=== PATIENT | female | born 1985 | race African-American/Black ===

== ENCOUNTER → 2017-10-22 | Outpatient (REF) | payer OTHER | LOC: M SFHCLERA 09:48 | DX: R10.9 Unspecified abdominal pain (principal) | CPT/HCPCS: 87086 ==

== ENCOUNTER 2018-02-23 21:13 | Emergency (ER) | payer OTHER ==
[2018-02-23] MEDS: NS 1,000 ML IV (22:06)
[2018-02-23] MEDS: METOCLOPRAMIDE INJ 10MG/2ML VIAL (J2765) IV (22:06)
[2018-02-23] MEDS: KETOROLAC 30 MG/ML VIAL (J1885) IV (22:07)
[2018-02-23 22:32] LABS: BASO % 0.5 % (0.0-1.0); EOS # 0.1 10^3/uL (0.0-0.50); EOS % 1.6 % (0.0-3.0); HEMATOCRIT 35.9 % (36.0-47.0); HEMOGLOBIN 11.8 g/dl (12.0-15.5); IMMATURE GRANULOCYTE % 0.3 % (0-3.0); LYMPH # 3.2 10^3/uL (1.5-4.5); LYMPH % 43.4 % (24.0-44.0); MEAN CORPUSCULAR HEMOGLOBIN 28.4 pg (27.0-33.0); MEAN CORPUSCULAR HGB CONC 32.9 g/dl (32.0-36.5); MEAN CORPUSCULAR VOLUME 86.3 fl (80.0-96.0); MONO # 0.7 10^3/uL (0.0-0.8); MONO % 9.9 % (0.0-5.0); NEUTROPHILS # 3.3 10^3/uL (1.8-7.7); NEUTROPHILS % 44.3 % (36.0-66.0); PLATELET COUNT, AUTOMATED 210 10^3/uL (150-450); RED BLOOD COUNT 4.16 10^6/uL (4.00-5.40); WHITE BLOOD COUNT 7.4 10^3/uL (4.0-10.0)
[2018-02-23 22:44] LABS: INR 0.95; PROTHROMBIN TIME 12.8 SECONDS (12.1-14.4)
[2018-02-23 22:45] LABS: PARTIAL THROMBOPLASTIN TIME 27.3 SECONDS (25.4-37.6)
[2018-02-23 23:11] LABS: LACTIC ACID SEPSIS PROTOCOL 0.7 MMOL/L (0.4-2.0)
[2018-02-23 23:11] LABS: ANION GAP 8 MEQ/L (8-16); BLOOD UREA NITROGEN 6 MG/DL (7-18); CALCIUM LEVEL 8.4 MG/DL (8.5-10.1); CARBON DIOXIDE LEVEL 23 MEQ/L (21-32); CHLORIDE LEVEL 111 MEQ/L (98-107); CREATININE FOR GFR 0.97 MG/DL (0.55-1.30); GLOMERULAR FILTRATION RATE > 60.0 (>60); GLUCOSE, FASTING 92 MG/DL (70-100); SODIUM LEVEL 142 MEQ/L (136-145); THYROID STIMULATING HORMONE 0.809 uIU/ML (0.358-3.740)
[2018-02-24 00:36] LABS: KETONE, URINE AUTO RFX NEGATIVE (NEGATIVE); LEUKOCYTE ESTERASE UR AUTO RFX NEGATIVE (NEGATIVE); MUCUS, URINE RFX SMALL (NEGATIVE); NITRITE, URINE AUTO RFX NEGATIVE (NEGATIVE); RBC, URINE AUTO RFX 2 /HPF (0-3); SPECIFIC GRAVITY UR AUTO RFX 1.013 (1.002-1.035); SQUAM EPITHELIAL CELL UR AURFX 1 /HPF (0-6); WBC, URINE AUTO RFX 0 /HPF (0-3)
== END 2018-02-24 00:47 | disposition home or self-care (01) ==
LOC: M ED 02-24 00:47
DX: E86.0 Dehydration (principal); D64.9 Anemia, unspecified
CPT/HCPCS: J1885

== ENCOUNTER → 2018-05-28 | Outpatient (CLI) | payer OTHER ==
[2018-05-28 13:50] LABS: BASO % 0.9 % (0.0-1.0); EOS # 0.1 10^3/uL (0.0-0.50); EOS % 1.8 % (0.0-3.0); HEMATOCRIT 37.2 % (36.0-47.0); HEMOGLOBIN 12.2 g/dl (12.0-15.5); LYMPH # 2.1 10^3/uL (1.5-4.5); LYMPH % 47.3 % (24.0-44.0); MEAN CORPUSCULAR HEMOGLOBIN 28.4 pg (27.0-33.0); MEAN CORPUSCULAR HGB CONC 32.8 g/dl (32.0-36.5); MEAN CORPUSCULAR VOLUME 86.7 fl (80.0-96.0); MONO # 0.6 10^3/uL (0.0-0.8); MONO % 12.5 % (0.0-5.0); NEUTROPHILS # 1.7 10^3/uL (1.8-7.7); NEUTROPHILS % 37.3 % (36.0-66.0); PLATELET COUNT, AUTOMATED 248 10^3/uL (150-450); RED BLOOD COUNT 4.29 10^6/uL (4.00-5.40); WHITE BLOOD COUNT 4.5 10^3/uL (4.0-10.0)
[2018-05-28 14:03] LABS: ALT/SGPT 26 U/L (12-78); BILIRUBIN,TOTAL 0.3 MG/DL (0.2-1.0); BLOOD UREA NITROGEN 12 MG/DL (7-18); CALCIUM LEVEL 9.2 MG/DL (8.5-10.1); CARBON DIOXIDE LEVEL 26 MEQ/L (21-32); CHLORIDE LEVEL 108 MEQ/L (98-107); CREATININE FOR GFR 1.03 MG/DL (0.55-1.30); FERRITIN 12 NG/ML (8-252); FOLATE 10.7 NG/ML; FREE T4 0.91 NG/DL (0.76-1.46); GLOMERULAR FILTRATION RATE > 60.0 (>60); GLUCOSE, FASTING 82 MG/DL (70-100); IRON (FE) 72 UG/DL (50-170); PERCENT SATURATION 20.3 % (13.2-45.0); POTASSIUM SERUM 4.6 MEQ/L (3.5-5.1); SODIUM LEVEL 141 MEQ/L (136-145); THYROID STIMULATING HORMONE 0.383 uIU/ML (0.358-3.740); TOTAL IRON BINDING CAPACITY 355 UG/DL (250-450); TOTAL PROTEIN 7.3 GM/DL (6.4-8.2); VITAMIN B12 LEVEL 828 PG/ML
[2018-05-28 14:27] LABS: SICKLE CELL SCREEN NEGATIVE (NEGATIVE)
== END ==
LOC: M SMT 11:00
PROVIDERS: ATTEND Physician Assistant
DX: D64.9 Anemia, unspecified (principal)

== ENCOUNTER 2018-06-10 17:29 | Emergency (ER) | payer OTHER ==
[~2018-06-10] VITALS: Ht 154.9 cm; Wt 68.6 kg
[2018-06-10] MEDS ORDERED: PHEN-239 PO (17:41)
[2018-06-10] MEDS: METOCLOPRAMIDE INJ 10MG/2ML VIAL (J2765) IV ONE ×2 (18:30→18:42)
[2018-06-10] MEDS ORDERED: KETOROLAC 30 MG/ML VIAL (J1885) IV ONE (18:30)
[2018-06-10] MEDS ORDERED: diphenhydrAMINE INJ 50MG/ML VIAL (J1200) IV ONE (18:30)
[2018-06-10] MEDS ORDERED: CYCLOBENZAPRINE 10 MG TAB PO ONE (18:30)
[2018-06-10 18:39] LABS: BASO % 0.8 % (0.0-1.0); EOS % 0.8 % (0.0-3.0); HEMATOCRIT 38.8 % (36.0-47.0); HEMOGLOBIN 12.9 g/dl (12.0-15.5); LYMPH # 1.9 10^3/uL (1.5-4.5); LYMPH % 38.2 % (24.0-44.0); MEAN CORPUSCULAR HEMOGLOBIN 28.7 pg (27.0-33.0); MEAN CORPUSCULAR HGB CONC 33.2 g/dl (32.0-36.5); MEAN CORPUSCULAR VOLUME 86.2 fl (80.0-96.0); MONO # 0.7 10^3/uL (0.0-0.8); MONO % 13.6 % (0.0-5.0); NEUTROPHILS # 2.3 10^3/uL (1.8-7.7); NEUTROPHILS % 46.4 % (36.0-66.0); PLATELET COUNT, AUTOMATED 220 10^3/uL (150-450); WHITE BLOOD COUNT 4.9 10^3/uL (4.0-10.0)
--- NOTE | 2018-06-10 18:48 | REP ---
Clinical: Syncope . Comparison: 02/23/2018 . Findings: The ventricles, sulci, and cisterns are normal in position and appearance. Craig-white differentiation is maintained. No acute intracranial hemorrhage, mass/mass effect, pathology or trauma/injury. No evidence for acute infarction. No extra-axial fluid collection. Calvarium is intact. Paranasal sinuses and mastoid air cells are clear. Impression: Normal noncontrast head CT. No evidence for acute intracranial pathology or trauma/injury. Electronically Signed by Chino Shanks MD 06/10/2018 06:39 P
--- NOTE | 2018-06-10 18:50 | REP ---
Clinical: Syncope. Comparison: 02/23/2018 . Technique: Axial noncontrast images from the skull base to the thoracic inlet with coronal and sagittal re-formations Findings: Straightening of normal lordosis again noted. No acute fracture / compression injury or subluxation. Early moderate degenerative disc osteophyte complex at C5-6 and C6-7 again noted and unchanged. Spinal canal is patent. Posterior elements and spinous processes are intact. Paravertebral soft tissues normal. Impression: Moderate degenerative spondylosis at C5-6 and C6-7. No evidence for acute pathology or trauma/injury. Electronically Signed by Chino Shanks MD 06/10/2018 06:41 P
[2018-06-10 18:54] LABS: ALT/SGPT 23 U/L (12-78); BILIRUBIN,DIRECT < 0.1 MG/DL (0.0-0.2); BILIRUBIN,TOTAL 0.2 MG/DL (0.2-1.0); BLOOD UREA NITROGEN 10 MG/DL (7-18); CALCIUM LEVEL 9.2 MG/DL (8.5-10.1); CARBON DIOXIDE LEVEL 26 MEQ/L (21-32); CHLORIDE LEVEL 107 MEQ/L (98-107); CREATININE FOR GFR 1.24 MG/DL (0.55-1.30); GLOMERULAR FILTRATION RATE > 60.0 (>60); GLUCOSE, FASTING 101 MG/DL (70-100); MAGNESIUM LEVEL 2.1 MG/DL (1.8-2.4); SODIUM LEVEL 139 MEQ/L (136-145); TOTAL PROTEIN 7.4 GM/DL (6.4-8.2)
[2018-06-10] MEDS ORDERED: NORT25CA2 PO (21:12)
[2018-06-10 21:36] VITALS: BP 118/75
--- NOTE | 2018-06-11 10:22 | ECGEPIP ---
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
== END 2018-06-10 21:39 | disposition home or self-care (01) ==
LOC: M ED 17:29 → EDBD 17:29 → M ED 21:39
DX: M54.81 Occipital neuralgia (principal); G43.909 Migraine, unspecified, not intractable, without status migrainosus; Z79.899 Other long term (current) drug therapy
CPT/HCPCS: 36415; 70450; 72125; 80048; 80076; 83735; 84439; 84443; 85025; 93005; 96374; 96375; 99284; J1200; J1885

== ENCOUNTER 2018-06-24 22:00 | Emergency (ER) | payer OTHER ==
[~2018-06-24 22:00] MED LIST: NORT25CA2 PO; PHEN-239 PO
[2018-06-24] MEDS ORDERED: PROP60TA14 PO (22:10)
[2018-06-24 23:03] LABS: ABG BASE EXCESS -1.1 (-2.0-2.0); ABG HCO3 21.9 MEQ/L (22.0-26.0); ABG O2 SATURATION 98.8 % (95.0-99.0); ABG PARTIAL PRESSURE CO2 31.3 mmHg (35.0-45.0); ABG PARTIAL PRESSURE O2 120.4 mmHg (75.0-100.0); ABG STANDARD HCO3 23.6 MEQ/L (22.0-26.0); ABG TOTAL CO2 22.8 MEQ/L (22.0-29.0); ABG pH (ARTERIAL) 7.462 UNITS (7.350-7.450)
[2018-06-24 23:45] VITALS: BP 129/83
--- NOTE | 2018-06-25 02:32 | REP ---
Clinical: Dyspnea . Comparison: None . Technique: PA and lateral. Findings: The mediastinum and cardiac silhouette are normal. The lung morgan are clear and without acute consolidation, effusion, or pneumothorax. The skeletal structures are intact and normal. Impression: 1. No acute cardiopulmonary process. Electronically Signed by Chino Shanks MD 06/25/2018 02:24 A
--- NOTE | 2018-06-25 15:33 | ECGEPIP ---
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
== END 2018-06-25 00:27 | disposition home or self-care (01) ==
LOC: M ED 22:00 → EDBD 22:00 → M ED 06-25 00:27
DX: I10 Essential (primary) hypertension (principal); F41.9 Anxiety disorder, unspecified

== ENCOUNTER → 2018-07-10 | Outpatient (CLI) | payer OTHER ==
[~2018-07-10] MED LIST changes: +KETO10TAB PO; +PROP60TA14 PO
--- NOTE | 2018-07-10 20:17 | REP ---
Chest two views HISTORY: Left breast pain Comparison: None The lungs are clear. The heart is normal in size. The pulmonary vasculature is normal in appearance. The bony structure is intact. IMPRESSION: No acute disease. Electronically Signed by John Crowder MD 07/10/2018 08:07 P
== END ==
LOC: M LRY 19:42
PROVIDERS: ATTEND Nurse Practitioner Family
DX: N64.4 Mastodynia (principal)
CPT/HCPCS: 71046; 93005; 96372; G0463; J1885

== ENCOUNTER 2018-07-11 20:11 | Emergency (ER) | payer OTHER ==
[~2018-07-11] VITALS: Ht 154.9 cm; Wt 65.9 kg
[~2018-07-11 20:11] MED LIST changes: -KETO10TAB PO
[2018-07-11 20:51] LABS: BASO % 0.5 % (0.0-1.0); EOS # 0.1 10^3/uL (0.0-0.50); EOS % 1.4 % (0.0-3.0); HEMATOCRIT 35.9 % (36.0-47.0); LYMPH # 2.7 10^3/uL (1.5-4.5); LYMPH % 41.9 % (24.0-44.0); MEAN CORPUSCULAR HEMOGLOBIN 28.8 pg (27.0-33.0); MEAN CORPUSCULAR HGB CONC 33.4 g/dl (32.0-36.5); MEAN CORPUSCULAR VOLUME 86.1 fl (80.0-96.0); MONO # 0.8 10^3/uL (0.0-0.8); MONO % 12.5 % (0.0-5.0); NEUTROPHILS # 2.8 10^3/uL (1.8-7.7); NEUTROPHILS % 43.5 % (36.0-66.0); PLATELET COUNT, AUTOMATED 195 10^3/uL (150-450); RED BLOOD COUNT 4.17 10^6/uL (4.00-5.40); WHITE BLOOD COUNT 6.3 10^3/uL (4.0-10.0)
--- NOTE | 2018-07-11 20:56 | REP ---
Chest one-view HISTORY: Chest pain Comparison: 07/10/2018 The lungs are clear. The heart is normal in size. The pulmonary vasculature is normal in appearance. Impression: No acute disease. Electronically Signed by John Crowder MD 07/11/2018 08:47 P
[2018-07-11] MEDS ORDERED: KETOROLAC 30 MG/ML VIAL (J1885) IV ONE (21:00)
[2018-07-11 21:12] LABS: BLOOD UREA NITROGEN 8 MG/DL (7-18); CALCIUM LEVEL 8.5 MG/DL (8.5-10.1); CARBON DIOXIDE LEVEL 24 MEQ/L (21-32); CHLORIDE LEVEL 110 MEQ/L (98-107); CK-MB VALUE MASS < 1.0 NG/ML (<3.6); CPK CREATINE PHOSPHOKINASE 148 U/L (26-192); CREATININE FOR GFR 1.03 MG/DL (0.55-1.30); GLOMERULAR FILTRATION RATE > 60.0 (>60); GLUCOSE, FASTING 86 MG/DL (70-100); MB/CK RELATIVE INDEX 0.68 (< OR =4); POTASSIUM SERUM 3.9 MEQ/L (3.5-5.1); SODIUM LEVEL 141 MEQ/L (136-145); TROPONIN I < 0.02 NG/ML (< 0.10)
[2018-07-11 21:26] LABS: HCG, SERUM QUALITATIVE NEGATIVE (NEGATIVE)
[2018-07-11] MEDS ORDERED: ISOVUE-370 76% 100ML VIAL (Q9967) As Ordered ONE (21:35)
[2018-07-11] MEDS ORDERED: NS 500 ML IV ONE (21:45)
--- NOTE | 2018-07-11 22:32 | REPVR ---
EXAM: CT Angiography Chest With Contrast EXAM DATE/TIME: 07/11/2018 9:40 PM CLINICAL HISTORY: 32 years old, female; Signs and symptoms; Shortness of breath; Patient HX: R/O pe; Additional info: Cp TECHNIQUE: Imaging protocol: Axial computed tomographic angiography images of the chest with intravenous contrast using CT angiography protocol. Coronal and sagittal reformatted images were created and reviewed. 3D rendering: MIP reconstructed images were created and reviewed. Radiation optimization: All CT scans at this facility use at least one of these dose optimization techniques: automated exposure control; mA and/or kV adjustment per patient size (includes targeted exams where dose is matched to clinical indication); or iterative reconstruction. Contrast material: ISOVUE 370; Contrast volume: 75 ml; Contrast route: IV; COMPARISON: CR PORTABLE CHEST X-RAY 07/11/2018 8:30 PM FINDINGS: Pulmonary arteries: The main pulmonary artery measures 24 mm. No pulmonary embolism is identified. Aorta: The ascending thoracic aorta measures 24 mm. Lungs: Normal. No consolidation. No masses. Pleural space: Normal. No pneumothorax. No pleural effusion. Heart: Normal. No cardiomegaly. No pericardial effusion. Mediastinum: There is soft tissue conforming to the anterior mediastinum consistent with residual thymic tissue. Lymph nodes: Unremarkable. No enlarged lymph nodes. Bones/joints: Unremarkable. No acute fracture. Soft tissues: Unremarkable. IMPRESSION: Negative CTA chest. No pulmonary embolism is identified. Electronically signed by: Chase Fernando On 07/11/2018 22:32:29 PM
[2018-07-11 22:35] VITALS: BP 124/76
[2018-07-11] MEDS ORDERED: KETO10TAB PO (22:37)
--- NOTE | 2018-07-12 07:46 | ECGEPIP ---
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
== END 2018-07-11 22:59 | disposition home or self-care (01) ==
LOC: M ED 20:11
DX: R07.1 Chest pain on breathing (principal); F41.9 Anxiety disorder, unspecified; G89.29 Other chronic pain; M54.9 Dorsalgia, unspecified; Z79.899 Other long term (current) drug therapy
CPT/HCPCS: 71045; 71275; 80048; 82550; 82553; 84484; 84703; 85025; 93005; 93041; 94760; 96374; 99284; J1885; Q9967

== ENCOUNTER → 2018-08-25 | Outpatient (CLI) | payer OTHER ==
[~2018-08-25] MED LIST changes: +KETO10TAB PO
[2018-08-25 18:04] LABS: FREE T4 0.81 NG/DL (0.76-1.46); THYROID STIMULATING HORMONE 0.457 uIU/ML (0.358-3.740)
[2018-08-25 18:05] LABS: TOTAL 25(OH) VITAMIN D 25.6 NG/ML (30.0-100.0)
== END ==
LOC: M SMT 15:52
PROVIDERS: ATTEND Family Medicine
DX: N92.6 Irregular menstruation, unspecified (principal); Z13.29 Encounter for screening for other suspected endocrine disorder

== ENCOUNTER → 2018-12-06 | Outpatient (REF) | payer OTHER ==
[2018-12-06 20:53] LABS: CHLAMYDIA DNA AMPLIFICATION NEGATIVE (NEGATIVE); GC DNA AMPLIFICATION NEGATIVE (NEGATIVE)
== END ==
LOC: M SFHCLERA 13:55
PROVIDERS: ATTEND Nurse Practitioner Family
DX: R30.0 Dysuria (principal)
CPT/HCPCS: 81002; 81025; 87086; 87661; G0463

== ENCOUNTER → 2018-12-30 | Outpatient (CLI) | payer OTHER ==
[~2018-12-30] MED LIST changes: +PROHANCE 279.3MG/ML 15ML VIAL (A9576) As Ordered ONE; +PROP20TA72
--- NOTE | 2018-12-30 18:39 | REP ---
Bilateral breast MRI study without and with IV gadolinium: History: Dense breast parenchyma on mammography. Mastodynia. Technique: 3 Sabrina MRI imaging was performed with a dedicated breast coil. Axial, coronal, and sagittal T1 and T2-weighted scans were obtained with and without fat saturation in the usual fashion. The study includes dynamically acquired post gadolinium enhanced imaging subtraction imaging. Maximal intensity projection and multiplanar re-formation imaging is included as well. The study was interpreted with the aid of [employer], an FDA approved computer-aided detection (CAD) software program, on a dedicated breast MRI work station. The gadolinium enhancement dose is 14 ml of intravenous ProHance. Findings: There is a mild to moderate fibroglandular tissue pattern noted bilaterally and in symmetrical pattern. There is mild background parenchymal enhancement. There is no evidence of axillary lymphadenopathy or significant breast cystic change. High-resolution pre and postcontrast T1 and T2-weighted scans show no suspicious morphologic abnormality in either breast. There is a 6 mm focus of T2 hyperintensity which shows enhancement in the central right breast. This is consistent with fibroadenoma. No suspicious focus of enhancement and/or washout is seen in either breast to suggest malignancy. Impression: BIRADS category II benign findings. Electronically Signed by Wilton Baltazar MD 12/31/2018 06:18 P
== END ==
LOC: M RAD 12:27
PROVIDERS: ATTEND Physician Assistant
DX: N64.4 Mastodynia (principal); N64.89 Other specified disorders of breast
CPT/HCPCS: A9576; C8908

== ENCOUNTER 2018-12-31 21:37 | Emergency (ER) | payer OTHER ==
[~2018-12-31] VITALS: Ht 154.9 cm; Wt 70.9 kg
[~2018-12-31 21:37] MED LIST changes: -PROHANCE 279.3MG/ML 15ML VIAL (A9576) As Ordered ONE; -PROP20TA72
[2019-01-01 00:15] LABS: BASO % 0.5 % (0.0-1.0); EOS # 0.2 10^3/uL (0.0-0.5); EOS % 2.1 % (0.0-3.0); HEMATOCRIT 37.6 % (36.0-47.0); HEMOGLOBIN 12.5 g/dl (12.0-15.5); LYMPH % 39.4 % (24.0-44.0); MEAN CORPUSCULAR HEMOGLOBIN 29.3 pg (27.0-33.0); MEAN CORPUSCULAR HGB CONC 33.2 g/dl (32.0-36.5); MEAN CORPUSCULAR VOLUME 88.1 fl (80.0-96.0); MONO # 0.7 10^3/uL (0.0-0.8); MONO % 8.6 % (0.0-5.0); NEUTROPHILS # 3.7 10^3/uL (1.5-8.5); NEUTROPHILS % 49.1 % (36.0-66.0); PLATELET COUNT, AUTOMATED 233 10^3/uL (150-450); RED BLOOD COUNT 4.27 10^6/uL (4.00-5.40); WHITE BLOOD COUNT 7.6 10^3/uL (4.0-10.0)
[2019-01-01 00:30] LABS: BLOOD UREA NITROGEN 13 MG/DL (7-18); CALCIUM LEVEL 9.2 MG/DL (8.5-10.1); CARBON DIOXIDE LEVEL 30 MEQ/L (21-32); CHLORIDE LEVEL 108 MEQ/L (98-107); CK-MB VALUE MASS < 1.0 NG/ML (<3.6); CPK CREATINE PHOSPHOKINASE 308 U/L (26-192); CREATININE FOR GFR 1.07 MG/DL (0.55-1.30); GLOMERULAR FILTRATION RATE > 60.0 (>60); GLUCOSE, FASTING 90 MG/DL (70-100); MB/CK RELATIVE INDEX 0.32 (< OR =4); POTASSIUM SERUM 4.2 MEQ/L (3.5-5.1); SODIUM LEVEL 141 MEQ/L (136-145); TROPONIN I < 0.02 NG/ML (< 0.10)
[2019-01-01] MEDS ORDERED: PROP20TA72 (00:58)
[2019-01-01 01:16] VITALS: BP 151/92
--- NOTE | 2019-01-01 02:52 | REP ---
Clinical: Acute chest pain . Comparison: 07/11/2018 . Findings: The mediastinum and cardiac silhouette are stable and within normal limits for portable technique. The lung morgan are clear without acute consolidation, effusion, or pneumothorax. Skeletal structures are intact. Impression: No acute cardiopulmonary process appreciated. Electronically Signed by Chino Shanks MD 01/01/2019 02:43 A
--- NOTE | 2019-01-01 19:52 | ECGEPIP ---
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
== END 2019-01-01 01:17 | disposition home or self-care (01) ==
LOC: M ED 21:37
DX: R07.89 Other chest pain (principal); R06.02 Shortness of breath; R74.8 Abnormal levels of other serum enzymes; T44.7X5A Adverse effect of beta-adrenoreceptor antagonists, initial encounter; R94.31 Abnormal electrocardiogram [ECG] [EKG]; J45.909 Unspecified asthma, uncomplicated; G43.909 Migraine, unspecified, not intractable, without status migrainosus; Z79.84 Long term (current) use of oral hypoglycemic drugs

== ENCOUNTER → 2019-01-27 | Outpatient (REF) | payer OTHER ==
[~2019-01-27] MED LIST changes: +PROP20TA72
[2019-01-27 17:50] LABS: APPEARANCE, URINE CLEAR (CLEAR); BACTERIA, URINE AUTO NEGATIVE (NEGATIVE); BILIRUBIN, URINE AUTO NEGATIVE (NEGATIVE); BLOOD, URINE BLOOD NEGATIVE (NEGATIVE); COLOR, URINE STRAW (YELLOW); GLUCOSE, URINE (UA) AUTO NEGATIVE (NEGATIVE); KETONE, URINE AUTO NEGATIVE (NEGATIVE); LEUKOCYTE ESTERASE, URINE AUTO NEGATIVE (NEGATIVE); MUCUS, URINE SMALL (NEGATIVE); NITRITE, URINE AUTO NEGATIVE (NEGATIVE); PROTEIN, URINE AUTO NEGATIVE (NEGATIVE); RBC, URINE AUTO 1 /HPF (0-3); SQUAMOUS EPITHELIAL CELL UR AU 0 /HPF (0-6); UROBILINOGEN, URINE AUTO 0.2 mg/dL (0.0-2.0); WBC, URINE AUTO 0 /HPF (0-3)
== END ==
LOC: M LAB REF 17:03
PROVIDERS: ATTEND Physician Assistant
DX: R31.9 Hematuria, unspecified (principal)

== ENCOUNTER 2019-02-04 16:14 | Emergency (ER) | payer OTHER ==
[~2019-02-04] VITALS: Ht 154.9 cm; Wt 70.5 kg
[2019-02-04 17:11] LABS: URINE PREG TEST NEGATIVE (NEGATIVE)
[2019-02-04] MEDS ORDERED: NORCO, ANEXSIA 5/325MG TABLET (HYDROcodone/ACETAMINOPHEN) PO ONE (18:00)
--- NOTE | 2019-02-04 18:23 | REPVR ---
PROCEDURE INFORMATION: Exam: US Pelvis Complete, Transabdominal Exam date and time: 02/04/2019 5:26 PM Age: 33 years old Clinical history: Pelvic pain; Additional info: Right pelvic pain; Cyst vs torsion TECHNIQUE: Imaging protocol: Real-time transabdominal pelvic ultrasound with image documentation. Complete exam. COMPARISON: No relevant prior studies available. FINDINGS: Uterus/cervix: The uterus is anteverted and measures 10.3 x 5.6 x 5.7 cm. The endometrium measures 11 mm. Within the endometrium, there is a circumscribed 12 x 6 mm focus of heterogeneous echotexture which is nonspecific. Question endometrial polyp. There are at least 3 myometrial lesions, most likely leiomyomata, measuring up to 1.5 cm. Right adnexa: The right ovary measures 3.7 x 2.2 x 3.3 cm. Normal vascular flow. There is a dominant 2.2 cm right ovarian follicle or cyst. Left adnexa: The left ovary measures 1 x 2.8 x 3.0 cm. Normal vascular flow. There is a 3.0 centimeter dominant left ovarian follicle or cyst. Free fluid: No free fluid in the cul-de-sac. Bladder: No intrinsic bladder abnormality demonstrated. IMPRESSION: 1. Endometrial lesion. Question polyp. 2. Leiomyomatous uterus. 3. Bilateral ovarian cysts or dominant follicles. 4. No free fluid in the cul-de-sac. Electronically signed by: My Mckinley On 02/04/2019 18:23:32 PM
[2019-02-04] MEDS ORDERED: NORC1TAB7 PO (18:32)
[2019-02-04 18:35] VITALS: BP 125/71
--- NOTE | 2019-02-05 10:39 | ED PDOC ---
Post-Departure Follow-Up dr lyons faxed formal report of pelvic us for fu Kiet Mcneil MD Feb 05, 2019 10:39
== END 2019-02-04 18:46 | disposition home or self-care (01) ==
LOC: M ED 16:14
DX: D25.9 Leiomyoma of uterus, unspecified (principal); N83.291 Other ovarian cyst, right side; N83.292 Other ovarian cyst, left side; N85.8 Other specified noninflammatory disorders of uterus; I10 Essential (primary) hypertension

== ENCOUNTER → 2019-02-09 | Outpatient (REF) | payer OTHER ==
[~2019-02-09] MED LIST changes: +NORC1TAB7 PO
[2019-02-09 14:32] LABS: APPEARANCE, URINE CLEAR (CLEAR); BACTERIA, URINE AUTO NEGATIVE (NEGATIVE); BILIRUBIN, URINE AUTO NEGATIVE (NEGATIVE); BLOOD, URINE BLOOD NEGATIVE (NEGATIVE); COLOR, URINE STRAW (YELLOW); GLUCOSE, URINE (UA) AUTO NEGATIVE (NEGATIVE); KETONE, URINE AUTO NEGATIVE (NEGATIVE); LEUKOCYTE ESTERASE, URINE AUTO NEGATIVE (NEGATIVE); NITRITE, URINE AUTO NEGATIVE (NEGATIVE); PROTEIN, URINE AUTO NEGATIVE (NEGATIVE); RBC, URINE AUTO 0 /HPF (0-3); SPECIFIC GRAVITY URINE AUTO 1.002 (1.002-1.035); SQUAMOUS EPITHELIAL CELL UR AU 0 /HPF (0-6); UROBILINOGEN, URINE AUTO 0.2 mg/dL (0.0-2.0); WBC, URINE AUTO 0 /HPF (0-3)
== END ==
LOC: M SMT 13:10
PROVIDERS: ATTEND Nurse Practitioner Family
DX: R31.0 Gross hematuria (principal)
CPT/HCPCS: 81001; 87086; 88108; G0463

== ENCOUNTER → 2019-02-16 | Outpatient (CLI) | payer OTHER ==
[~2019-02-16] MED LIST changes: +ISOVUE-370 76% 100ML VIAL (Q9967) As Ordered ONE
--- NOTE | 2019-02-17 08:28 | REP ---
Clinical: Gross hematuria. Technique: Axial precontrast, contrast enhanced, and delayed images of the abdomen and pelvis using 100 ml Isovue 370 intravenous contrast material with coronal and sagittal re-formations as well as volume rendered 3-D CT urogram. Findings: Evaluation of the urinary tract system including bilateral kidneys, ureters and bladder are normal in all phases of enhancement. No nephroureterolithiasis, hydroureternephrosis, renal cystic or mass lesion. No bladder lesion. Renal parenchymal enhancement is symmetric and delayed images demonstrate normal collecting system. Liver includes 2.2 cm hemangioma in the lateral left segment. Spleen, pancreas, collapsed gallbladder, and bilateral adrenal glands are normal. The enteric system is unremarkable and a normal appendix is identified. A moderate to significant amount of stool identified in the rectosigmoid. Pelvis demonstrates normal bladder and age-appropriate uterus/adnexa. No ascites. No free air. No significant adenopathy. Abdominal aorta without aneurysm or dissection. Musculoskeletal structures are intact. Impression: 1. Normal urinary tract system. 2. Moderate to significant amount of fecal material in the rectosigmoid likely transient. 3. 2.2 cm hemangioma within the left lobe of liver. Electronically Signed by Chino Shanks MD 02/17/2019 08:19 A
== END ==
LOC: M RAD 16:36
PROVIDERS: ATTEND Nurse Practitioner Family
DX: R31.0 Gross hematuria (principal)
CPT/HCPCS: 74178; Q9967

== ENCOUNTER → 2019-04-05 | Outpatient (REF) | payer OTHER ==
[~2019-04-05] MED LIST changes: -ISOVUE-370 76% 100ML VIAL (Q9967) As Ordered ONE
== END ==
LOC: M LAB REF 17:16
PROVIDERS: ATTEND Physician Assistant
DX: N76.0 Acute vaginitis (principal)

== ENCOUNTER 2019-08-17 18:34 | Emergency (ER) | payer OTHER ==
[~2019-08-17] VITALS: Ht 154.9 cm; Wt 74.0 kg
[2019-08-17] MEDS ORDERED: CETI-24 (18:40)
[2019-08-17] MEDS ORDERED: MONT10TA10 (18:40)
[2019-08-17] MEDS ORDERED: FLUT11IN (18:40)
[2019-08-17] MEDS ORDERED: PROAAER10 (18:40)
--- NOTE | 2019-08-17 19:13 | ECGEPIP ---
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
[2019-08-17 20:03] LABS: BASO % 0.4 % (0.0-1.0); EOS # 0.1 10^3/uL (0.0-0.5); HEMATOCRIT 35.9 % (36.0-47.0); HEMOGLOBIN 11.7 g/dl (12.0-15.5); LYMPH # 2.3 10^3/uL (1.5-5.0); LYMPH % 34.5 % (24.0-44.0); MEAN CORPUSCULAR HEMOGLOBIN 26.2 pg (27.0-33.0); MEAN CORPUSCULAR HGB CONC 32.6 g/dl (32.0-36.5); MEAN CORPUSCULAR VOLUME 80.3 fl (80.0-96.0); MONO # 0.8 10^3/uL (0.0-0.8); MONO % 11.9 % (0.0-5.0); NEUTROPHILS # 3.5 10^3/uL (1.5-8.5); NEUTROPHILS % 51.9 % (36.0-66.0); PLATELET COUNT, AUTOMATED 261 10^3/uL (150-450); RED BLOOD COUNT 4.47 10^6/uL (4.00-5.40); WHITE BLOOD COUNT 6.8 10^3/uL (4.0-10.0)
[2019-08-17 20:14] LABS: INR 1.03; PROTHROMBIN TIME 13.2 SECONDS (11.8-14.0)
[2019-08-17 20:15] LABS: PARTIAL THROMBOPLASTIN TIME 26.9 SECONDS (25.0-38.4)
[2019-08-17 20:17] LABS: D-DIMER QUANT 596.16 ng/ml (<500)
[2019-08-17 20:40] LABS: ALBUMIN 3.8 GM/DL (3.2-5.2); ALT/SGPT 27 U/L (12-78); BILIRUBIN,DIRECT 0.1 MG/DL (0.0-0.2); BILIRUBIN,TOTAL 0.2 MG/DL (0.2-1.0); CK-MB VALUE MASS < 1.0 NG/ML (<3.6); CPK CREATINE PHOSPHOKINASE 804 U/L (26-192); FREE T4 1.11 NG/DL (0.76-1.46); LIPASE 157 U/L (73-393); MB/CK RELATIVE INDEX 0.12 (< OR =4); NT-PRO BNP 36 PG/ML (<125); THYROID STIMULATING HORMONE < 0.005 uIU/ML (0.358-3.740); TOTAL PROTEIN 7.4 GM/DL (6.4-8.2); TROPONIN I < 0.02 NG/ML (< 0.10)
[2019-08-17] MEDS ORDERED: ISOVUE-370 76% 100ML VIAL As Ordered ONE (20:52)
--- NOTE | 2019-08-17 21:30 | REPVR ---
PROCEDURE INFORMATION: Exam: CT Angiography Chest With Contrast Exam date and time: 08/17/2019 9:07 PM Age: 33 years old Clinical indication: Chest pain; Additional info: Chest pain/sob TECHNIQUE: Imaging protocol: Computed tomographic angiography of the chest with intravenous contrast. 3D rendering: MIP and/or 3D reconstructed images were created by the technologist. Radiation optimization: All CT scans at this facility use at least one of these dose optimization techniques: automated exposure control; mA and/or kV adjustment per patient size (includes targeted exams where dose is matched to clinical indication); or iterative reconstruction. Contrast material: ISO 370; Contrast volume: 75 ml; Contrast route: IV; COMPARISON: CT ANGIO CHEST 07/11/2018 9:33 PM FINDINGS: Pulmonary arteries: Normal. No pulmonary emboli. Aorta: Unremarkable. No aortic aneurysm. No aortic dissection. Lungs: Unremarkable. No consolidation. No masses. Pleural space: Unremarkable. No pneumothorax. No pleural effusion. Heart: Unremarkable. No cardiomegaly. No pericardial effusion. Mediastinum: Small amount of residual mediastinal thymic tissue. Lymph nodes: Unremarkable. No enlarged lymph nodes. Bones/joints: Unremarkable. No acute fracture. Soft tissues: Unremarkable. IMPRESSION: No acute findings. Electronically signed by: Gaurav Akins On 08/17/2019 21:30:19 PM
--- NOTE | 2019-08-17 21:43 | REPVR ---
PROCEDURE INFORMATION: Exam: CT Head Without Contrast Exam date and time: 08/17/2019 9:07 PM Age: 33 years old Clinical indication: Pain; Headache TECHNIQUE: Imaging protocol: Computed tomography of the head without contrast. Radiation optimization: All CT scans at this facility use at least one of these dose optimization techniques: automated exposure control; mA and/or kV adjustment per patient size (includes targeted exams where dose is matched to clinical indication); or iterative reconstruction. COMPARISON: CT Head without contrast 06/10/2018 6:21 PM FINDINGS: Brain: The white-oconnor differentiation is preserved demonstrating no acute territorial type infarct. No acute intracranial hemorrhage is visualized. No intracranial mass effect. There is no midline shift. Ventricles: No ventriculomegaly. Bones/joints: The calvarium demonstrates no evidence for a depressed fracture. Sinuses: Visualized sinuses are unremarkable. No fluid levels. Mastoid air cells: No mastoid effusion. Soft tissues: Unremarkable. IMPRESSION: No acute intracranial abnormality. Electronically signed by: Dao Amaro On 08/17/2019 21:42:49 PM
[2019-08-17 22:48] VITALS: BP 138/88
--- NOTE | 2019-08-18 01:36 | REP ---
Clinical: Acute chest pain . Comparison: 12/31/2018 . Technique: PA and lateral. Findings: The mediastinum and cardiac silhouette are normal. The lung morgan are clear and without acute consolidation, effusion, or pneumothorax. The skeletal structures are intact and normal. Impression: 1. No acute cardiopulmonary process. Electronically Signed by Chino Shanks MD 08/18/2019 01:28 A
--- NOTE | 2019-08-18 06:43 | ECGEPIP ---
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
== END 2019-08-17 22:49 | disposition home or self-care (01) ==
LOC: M ED 18:34
DX: R07.9 Chest pain, unspecified (principal); E05.90 Thyrotoxicosis, unspecified without thyrotoxic crisis or storm; I10 Essential (primary) hypertension; J45.909 Unspecified asthma, uncomplicated
CPT/HCPCS: 36415; 70450; 71046; 71275; 80047; 80076; 82550; 82553; 83690; 83880; 84439; 84443; 84484; 84702; 85025; 85379; 85610; 85730; 93005; 99284; Q9967

== ENCOUNTER → 2019-08-20 | Outpatient (CLI) | payer OTHER ==
[~2019-08-20] MED LIST changes: +ALL10TAB29; +FLUT11IN; +MONT10TA4; +PROAAER10
[2019-08-20 17:41] LABS: BASO % 0.5 % (0.0-1.0); EOS # 0.1 10^3/uL (0.0-0.5); EOS % 1.8 % (0.0-3.0); HEMATOCRIT 36.2 % (36.0-47.0); HEMOGLOBIN 11.5 g/dl (12.0-15.5); LYMPH % 34.7 % (24.0-44.0); MEAN CORPUSCULAR HGB CONC 31.8 g/dl (32.0-36.5); MEAN CORPUSCULAR VOLUME 81.7 fl (80.0-96.0); MONO # 0.7 10^3/uL (0.0-0.8); NEUTROPHILS # 2.9 10^3/uL (1.5-8.5); NEUTROPHILS % 49.8 % (36.0-66.0); PLATELET COUNT, AUTOMATED 276 10^3/uL (150-450); RED BLOOD COUNT 4.43 10^6/uL (4.00-5.40); WHITE BLOOD COUNT 5.7 10^3/uL (4.0-10.0)
[2019-08-20 17:53] LABS: FREE T4 1.06 NG/DL (0.76-1.46); THYROID PEROXIDASE ANTIBODY 299.6 U/ML (<60.0); THYROID STIMULATING HORMONE < 0.005 uIU/ML (0.358-3.740); TOTAL 25(OH) VITAMIN D 33.2 NG/ML (30.0-100.0)
[2019-08-24 12:19] LABS: THRYOGLOBULIN ANTIBODIES (ATA) < 1.0 IU/mL (0.0-0.9); THYROGLOBULIN QUANTITATIVE 25.3 ng/mL (1.5-38.5)
== END ==
LOC: M LRY 10:03
PROVIDERS: ATTEND Physician Assistant
DX: E05.80 Other thyrotoxicosis without thyrotoxic crisis or storm (principal)

== ENCOUNTER → 2019-09-20 | Outpatient (CLI) | payer OTHER ==
[2019-09-20 17:35] LABS: FREE T4 0.98 NG/DL (0.76-1.46); THYROID STIMULATING HORMONE < 0.005 uIU/ML (0.358-3.740); TOTAL T3 109.1 NG/DL (60.0-181.0)
== END ==
LOC: M LRY 10:35
PROVIDERS: ATTEND Nurse Practitioner Family
DX: E05.80 Other thyrotoxicosis without thyrotoxic crisis or storm (principal)

== ENCOUNTER → 2019-10-06 | Outpatient (CLI) | payer OTHER ==
[~2019-10-06] MED LIST changes: -ALL10TAB29; +CETI-24
--- NOTE | 2019-10-07 11:21 | REP ---
Radionuclide thyroid uptake and scan: History: Thyrotoxicosis without thyroid toxic crisis or storm. Technique: 310 microcuries of I 123 sodium iodine is ingested. 24 or uptake and functional scan images are acquired. I note that the patient was asked about exposure to iodinated contrast during the last 2 months and replied in the negative. However, her electronic x-ray jacket indicates that she had a CT study of the chest with IV contrast 7 weeks ago. Ideally, our protocol calls for an 8-week interval from the the last exposure to iodinated contrast. Conceivably, this could inhibit the uptake value. Findings: The 24 uptake value is 18.7% (25 35%). Homogeneous uptake is seen in normal-sized thyroid lobes bilaterally. No cold or warm lesion is seen. Impression: Homogeneous uptake in both lobes of the thyroid. No cold or warm lesion seen. Uptake value 18.7%. See procedural note above. Electronically Signed by Wilton Baltazar MD 10/07/2019 11:12 A
== END ==
LOC: M RAD 08:46
PROVIDERS: ATTEND Internal Medicine Endocrinology, Diabetes & Metabolism
DX: E05.80 Other thyrotoxicosis without thyrotoxic crisis or storm (principal)

== ENCOUNTER → 2019-12-03 | Outpatient (CLI) | payer OTHER ==
[2019-12-03 15:02] LABS: FREE T3 2.5 PG/ML (2.2-4.0); FREE T4 0.8 NG/DL (0.76-1.46); THYROID STIMULATING HORMONE 0.465 uIU/ML (0.358-3.740)
== END ==
LOC: M LAB 11:29
PROVIDERS: ATTEND Physician Assistant
DX: R79.89 Other specified abnormal findings of blood chemistry (principal)

== ENCOUNTER → 2020-01-17 | Outpatient (CLI) | payer OTHER ==
[2020-01-17 18:45] LABS: FREE T4 0.86 NG/DL (0.76-1.46); THYROID STIMULATING HORMONE 0.515 uIU/ML (0.358-3.740)
== END ==
LOC: M LAB 12:36
PROVIDERS: ATTEND Physician Assistant
DX: R79.89 Other specified abnormal findings of blood chemistry (principal)